=== PATIENT | female | born 1940 | race Caucasian/White ===

== ENCOUNTER 2016-11-08 15:37 | Emergency (ER) | payer MEDICARE, OTHER ==
[~2016-11-08] VITALS: Ht 157.5 cm; Wt 99.8 kg
[2016-11-08] MEDS ORDERED: DOXAZOSIN 4MG TA4 MG PO (15:40)
[2016-11-08] MEDS ORDERED: CRESTOR10 MG PO (15:41)
[2016-11-08] MEDS ORDERED: FUROSEMIDE40 MG PO (15:41)
[2016-11-08] MEDS ORDERED: LOPRESSOR 50 MG50 MG PO (15:42)
[2016-11-08] MEDS ORDERED: LISINOPRIL40 MG PO (15:43)
[2016-11-08] MEDS ORDERED: LEVOTHYROXIN0.088 MG PO (15:44)
[2016-11-08] MEDS ORDERED: METFORMIN 500M500 MG PO (15:46)
--- NOTE | 2016-11-08 15:49 | Emergency Room Report ---
History of Present Illness Time Seen by [email or web address] Presenting Problem in Triage Pt arrived:Ambulance Stretcher Presenting Problem:EMS RESPONDED TO CALL OF FEMALE IN FLOOR AT HER HOME. PT STATES SHE FELL AROUND 1030 LAST NIGHT AND COULDN'T GET BACK UP JUST ABLE TO GET UP THIS EVENING WITH EMS ASSIST. PT PRESENTS WITH LOCALIZED DEPENDENT EDEMA TO LEFT SIDE INCL ARM, LEG, FOOT AND FACE. PT WITH NOTICEABLE FACIAL ASSYMETRY IN REGARDS TO THAT SIDE. PT IS A&O X4 WITH GCS 15 Onset of symptoms date/time:11/07/16 or onset unknown for: Treatment Prior to Arrival: SL ECG AWS SOLUTION ARCHITECT Provided by:EMS Sepsis Risk Assessment: Temp: B/P: 170/111 MAP: 130 Pulse: 105 Resp: 18 Recent fever? N Clinical Suspician of Infection? N Mental Status: 1 - Regular (Normal Baseline) Sepsis Risk:Low Sepsis Risk Have you (or family members/close friends) recently traveled outside the [place]? N If Yes, where/when: Have you had exposure to infectious disease within the past month? TB? Other? Specify: Comment The patient is brought in by ambulance. She says that she slid out of her chair at about 10 PM last night and laid on the floor on her LEFT side all night. She denies any injury or pain except for generalized soreness on her LEFT side. She was noted to have weakness of her LEFT arm by EMS. ALLERGIES Uncoded Allergies: PENICLLIN (Mild, 11/08/16) Home Medications Reported Medications Doxazosin Mesylate (Doxazosin 4MG Tablet) 2 MG PO BID Rosuvastatin Calcium (Crestor) 10 MG PO QHS Furosemide (Furosemide 40MG) 40 MG PO BID Metoprolol Tartrate (Lopressor) 50 MG PO BID Lisinopril (Lisinopril 40MG) 40 MG PO BID Levothyroxine Sodium (Levothyroxine 0.088MG) 0.088 MG PO DAILY METFORMIN HCL (Metformin 500MG) 500 MG PO BID History Medical History General Angina: No SD: No Hypertension? Yes Hyperlipidemia? Yes COPD? No Asthma? No CVA? No Seizures? No Diabetes? No GB Disease: Yes MRSA? No TB? No Cancer? No More? Yes Additional hx: TIA Immunization Hx Ped.Immunizations UTD Yes DT/Tetanus 1-4 YRS Surgical Hx Previous Surgery?Y APPY GB REMOVED HEMMOROIDS TUBAL LIGATION Social History Smoking Hx Smoker: Never Smoker Tobacco: No Type N/A Are you/the child exposed to second-hand smoke: No Alcohol Alcohol: No Review of Systems All Other Systems Reviewed and Negative Constitutional denies fever Respiratory denies shortness of breath Cardiovascular denies chest pain Gastrointestinal denies abdominal pain, denies vomiting Psychiatric/Neurological denies headache Physical Exam Vital Signs Vital Signs Date Time Temp Pulse Resp B/P Pulse O2 O2 Flow FiO2 Ox Delivery Rate 11/08 1711 75 18 197/100 96 11/08 1626 68 18 165/110 97 4 11/08 1541 105 18 170/111 97 General Appearance obese, edema of LEFT face, LEFT arm, LEFT leg., chemosis of the left eye. Eye Exam - bilateral eye normal exam, bilateral eye PERRL, bilateral eye EOMI Ear, Nose, Throat hearing grossly normal, normal ENT inspection Neck normal inspection, non-tender, supple, full range of motion Respiratory Status Yes: trachea midline, chest symmetrical, non tender chest. No: respiratory distress. Lung Sounds bilateral: normal breath sounds, lungs clear. Cardiovascular normal exam, regular rate/rhythm, no peripheral edema, no gallop, no JVD, no murmur, no rub, normal peripheral pulses Peripheral Pulses Pulses normal Yes Gastrointestinal normal bowel sounds, normal exam, non tender, soft, no organomegaly Back normal inspection, no CVA tenderness, no vertebral tenderness Extremities non-tender, normal range of motion, normal inspection Neurologic alert, LEFT facial droop. Cannot gaze past the midline to the LEFT. Dense LEFT hemiparesis. LEFT hemisensory loss. Dysarthria. No aphasia. Mental status normal mood/affect Skin intact, normal color, warm/dry Stroke Score/Tx Stroke Evaluation Initial symptoms indicative of possible stroke? Yes NIH STROKE SCORE NIH STROKE SCORE Response Value 1a.Level of Consciousness ALERT 0 1b.LOC Questions ANSWERS BOTH CORRECTLY 0 1c.LOC Commands OBEYS BOTH CORRECTLY 0 2 .Best Gaze PARTIAL GAZE PALSY 1 3 .Visual NO VISUAL LOSS 0 4 .Facial Palsy COMPLETE 3 5a.Motor Arm Left NO EFFORT AGAINST GRAVITY 3 5b.Motor Arm Right NO DRIFT 0 6a.Motor Leg Left NO EFFORT AGAINST GRAVITY 3 6b.Motor Leg Right NO DRIFT 0 7 .Limb Ataxia ABSENT 0 8 .Sensory FULL LOSS 2 9 .Best Language NO APHASIA 0 10.Dysarthria MILD TO MOD DYSARTHRIA 1 ED.NIH11 NO NEGLECT 0 Total 13 Medical Decision Making LABS/Meds/Orders Pt receiving controlled substance in ED? No Results/Orders Laboratory Tests 11/08/16 1615: PT 12.0 H, INR 1.12 H, APTT 25.3 11/08/16 1540: Creatine Kinase 428 H, CK-MB (CK-2) Rel Index 1.2, CK and CKMB Interp 5.1 H, Troponin I 0.08 H 11/08/16 1540: Sodium 141, Potassium 4.2, Chloride 104, Carbon Dioxide 21 L, BUN 53 H, Creatinine 3.1 H, Estimated Creat Clear 24 L, Estimated GFR (MDRD) 15 *L, Glucose 144 H, Calcium 9.5, Total Bilirubin 0.7, AST 24, ALT 35, Alkaline Phosphatase 120 H, Total Protein 7.9, Albumin 3.4, Globulin 4.5 H, Albumin/ Globulin Ratio 0.8 L, WBC 11.1 H, RBC 3.93 L, Hgb 9.4 L, Hct 31.4 L, MCV 79.9 L, RDW 16.2, Plt Count 351, MPV 6.1 L, Gran % 88.7 H, Gran # 9.8 H, Total Counted 100, Lymphocytes % 5.8 L, Monocytes % 5.3, Eosinophils % 0.1, Basophils % 0.2, Neutrophils 96 H, Lymphocytes (Manual) 1 L, Lymphocytes # 0.6 L, Monocytes (Manual) 3, Monocytes # 0.6, Eosinophils # 0.0, Basophils # 0.0, Platelet Estimate NORMAL, Ovalocytes 1+, Schistocytes 1+, PUBS MCHC 30.0 L, MCH 23.9 L, Urine Color YELLOW, Urine Appearance CLEAR, Urine pH 5.5, Ur Specific [place] 1.025, Urine Protein 3+ H, Urine Ketones NEGATIVE, Urine Blood TRACE- LYSED, Urine Nitrate NEGATIVE, Urine Bilirubin NEGATIVE, Urine Urobilinogen 0.2, Ur Leukocyte Esterase NEGATIVE, Urine RBC OCC, Urine WBC NONE, Ur Squamous Epith Cells NONE, Amorphous Sediment OCC, Urine Bacteria TRACE, Coarse Granular Casts OCC, Urine Glucose NEGATIVE Orders Procedure Date/time Status DIET-NOTHING BY MOUTH 11/08 D Active 12 LEAD EKG-VIK (INITIAL) 02/21 1600 Active ELECTROCARDIOGRAM REQUEST 11/08 1559 Active CARDIAC ENZYMES 11/08 1559 Complete URINARY CATHETER INSERT 11/08 1555 Active URINALYSIS/COMPLETE 11/[address] HEAD REQ 11/[address] SCAN REQUEST 11/08 1547 Complete PARTIAL THROMBOPLASTIN TIME 11/08 1547 Complete PROTHROMBIN TIME 11/08 1547 Complete CBC WITH AUTO DIFF 11/08 1547 Complete CHEM 12 PROFILE 11/08 1547 Complete DIFFERENTIAL-WBC 11/08 1540 Complete XRAY/CT/US XRAY/CT/US CT head, C-spine Comment CT scan interpreted by radiologist: Head: Large RIGHT intracerebral hemorrhage Cervical spine: No acute fracture. Spondylosis of the cervical spine. Bilateral pleural effusions. Goiter. Progress - 4:10 PM: Case discussed with the value analysis coordinator at [facility]. She accepts the patient for Dr. Santacruz in the emergency department. Departure Departure Disposition DC/XFER from ER to [facility] Clinical Impression Primary Impression: Intracranial hemorrhage Condition STABLE Referrals Vik GUTIERREZ,Juan Rodriguez (Family) ED Critical Care Critical Care Yes Time spent 30-74 min Vital system(s) involved: Central Nervous System I was present at bedside for Coordinating pt's care, Interpreting EKGs/Strips , During my initial exam, Reviewing lab results, Discussing pt condition at 1900
[2016-11-08 15:58] LABS: HEMOGLOBIN 9.4 g/dL (12.2-16.2); LYMPH # 0.6 K/mm3 (0.7-4.5); LYMPH % 5.8 % (10-50.0)
[2016-11-08 16:11] LABS: URINE BILIRUBIN - DIPSTICK NEGATIVE (NEG); URINE BLOOD TRACE-LYSED (NEG)
--- NOTE | 2016-11-08 16:21 | RADIOLOGY REPORT PS360 ---
CT HEAD W/O CONTRAST HISTORY: Facial drooping, left-sided weakness, POSSIBLE STROKE RESULTING IN FALL ORDERING PHYSICIAN: Nam Becerra MD PATIENT AGE: 76 years COMPARISON: None TECHNIQUE: Axial images obtained without contrast. Brain and bone windows reviewed. FINDINGS: There is a large intraparenchymal hemorrhage involving the right temporal lobe extending into the temporoparietal junction with a moderate amount of edema. There is effacement of the right lateral ventricle. There is only mild midline shift to the left of approximately 2 mm. No intraventricular hemorrhage is apparent. Mild mucosal thickening of the ethmoid sinuses. IMPRESSION: Large area of acute intraparenchymal hemorrhage of the right temporal lobe extending into the temporoparietal junction. Critical result called to Mariam on 11/08/2016 4:17 PM.
[2016-11-08 16:26] LABS: NEUTROPHILS 96 % (42-76)
--- NOTE | 2016-11-08 16:31 | RADIOLOGY REPORT PS360 ---
CT CERVICAL SPINE W/O CONT INDICATION: Neck pain following injury POSSIBLE STROKE RESULTING IN FALL ORDERING PHYSICIAN: Nam Becerra MD PATIENT AGE: 76 years COMPARISON: None TECHNIQUE: Axial images are obtained without contrast. Sagittal and coronal reformatted images are reviewed as well. FINDINGS: Normal alignment. Multilevel degenerative disc disease. Endplate, facet, and uncovertebral hypertrophy is present with foraminal narrowing bilaterally at C3-C4 left greater than right and bilaterally at C4-C5 and C5-C6. No obvious fracture or dislocation. No lytic or blastic change. Upper thoracic images show bilateral pleural effusions. There is marked enlargement of the thyroid gland with substernal extension. Trachea is slightly shifted toward the right and mildly narrowed. Debris is present within the upper esophagus. IMPRESSION: 1. No acute fracture. 2. Spondylosis of the cervical spine. 3. Bilateral pleural effusions. 4. Goiter
[2016-11-08 17:11] VITALS: BP 197/100
== END 2016-11-08 17:12 | disposition short-term general hospital (02) ==
LOC: ER 15:37
PROVIDERS: Emergency Medicine
DX: I61.9 Nontraumatic intracerebral hemorrhage, unspecified (principal); I10 Essential (primary) hypertension; R29.713 NIHSS score 13; E66.9 Obesity, unspecified; Z68.41 Body mass index [BMI] 40.0-44.9, adult